=== PATIENT | female | born 1970 | race Caucasian/White ===

== ENCOUNTER 2018-12-10 16:10 | Emergency (ER) | payer MEDICAID ==
[~2018-12-10] VITALS: Ht 167.6 cm; Wt 53.0 kg
[2018-12-10 16:32] VITALS: Ht 167.6 cm; Wt 53.0 kg
[2018-12-10] MEDS ORDERED: SOD CHLORIDE 0.9% 1,000 ML IV STA (19:54)
[2018-12-10] MEDS ORDERED: KETOROLAC 15 MG INJ IV STA (19:54)
--- NOTE | 2018-12-10 20:22 | ERD ---
ER Documentation Chief Complaint Chief Complaint Complains of urine problems x 2 days HPI 48-year-old female with history of HIV presents with 2-day complaint of fever, stomach pain, dysuria. Denies hematuria. Not taking treatments. Denies nausea, vomiting, diarrhea. She is unsure what medication she is taking for HIV but states that they just changed her medication. States her CD4 is 700. Denies any HIV related illnesses. She has all her vaccines. ROS All systems reviewed and are negative except as per history of present illness. Medications Home Meds Active Scripts Acetaminophen* (Tylophen*) 500 Mg Capsule, 1-2 CAP PO Q8 PRN for PAIN AND OR ELEVATED TEMP, #20 CAP Prov:SANDRA GOMEZ 12/10/18 Ciprofloxacin Hcl* (Ciprofloxacin Hcl*) 500 Mg Tablet, 500 MG PO BID for pyelonephritis for 7 Days, TAB Prov:TAYO GOMEZEL 12/10/18 Allergies Allergies: Coded Allergies: No Known Allergy (Unverified , 12/10/18) PMhx/Soc Medical and Surgical Hx: pt denies Medical Hx, pt denies Surgical Hx History of Surgery: No Anesthesia Reaction: No Hx Neurological Disorder: No Hx Respiratory Disorders: No Hx Cardiac Disorders: No Hx Psychiatric Problems: No Hx Miscellaneous Medical Probl: No Hx Alcohol Use: No Hx Substance Use: No Hx Tobacco Use: No Smoking Status: Never smoker FmHx Family History: No diabetes, No coronary disease, No other Physical Exam Vitals Vital Signs Date Temp Pulse Resp B/P (MAP) Pulse Ox O2 O2 Flow FiO2 Time Delivery Rate 12/10/18 98.3 84 16 116/67 99 Room Air 23:03 (83) 12/10/18 99.5 84 20 147/85 100 16:32 (105) Physical Exam Const: No acute distress Head: Atraumatic Eyes: Normal Conjunctiva ENT: Normal External Ears, Nose and Mouth. Neck: Full range of motion. No meningismus. Resp: Clear to auscultation bilaterally Cardio: Regular rate and rhythm, no murmurs Abd: Negative McBurney's. Positive Stevenson sign. Skin: No petechiae or rashes Back: No midline or flank tenderness Ext: No cyanosis, or edema Neur: Awake and alert Psych: Normal Mood and Affect Result Diagram: 12/10/18203912/10/182039 Results 24 hrs Laboratory Tests Test 12/10/18 20:20 12/10/18 20:21 12/10/18 20:29 12/10/18 20:40 Urine Color YELLOW Urine Clarity CLOUDY Urine pH 5.0 Urine Specific 1.011 Curran Urine Ketones TRACE mg/dL Urine Nitrite NEGATIVE mg/dL Urine Bilirubin NEGATIVE mg/dL Urine Urobilinogen NEGATIVE mg/dL Urine Leukocyte 3+ Mirza/ul Esterase Urine Microscopic 12 /HPF RBC Urine Microscopic > 182 /HPF WBC Urine Squamous MANY /HPF Epithelial Cells Urine Bacteria FEW /HPF Urine Hemoglobin 1+ mg/dL Urine Glucose NEGATIVE mg/dL Urine Total Protein NEGATIVE mg/dl POC Beta HCG, NEGATIVE NEGATIVE Qualitative White Blood Count 11.5 10^3/ul Red Blood Count 4.54 10^6/ul Hemoglobin 14.3 g/dl Hematocrit 42.9 % Mean Corpuscular 94.5 fl Volume Mean Corpuscular 31.5 pg Hemoglobin Mean Corpuscular 33.3 g/dl Hemoglobin Concent Red Cell 12.2 % Distribution Width Platelet Count 216 10^3/UL Mean Platelet 11.2 fl Volume Immature 0.500 % Granulocytes % Neutrophils % 73.8 % Lymphocytes % 17.4 % Monocytes % 7.8 % Eosinophils % 0.1 % Basophils % 0.4 % Nucleated Red Blood 0.0 /100WBC Cells % Immature 0.060 10^3/ul Granulocytes # Neutrophils # 8.5 10^3/ul Lymphocytes # 2.0 10^3/ul Monocytes # 0.9 10^3/ul Eosinophils # 0.0 10^3/ul Basophils # 0.1 10^3/ul Nucleated Red Blood 0.0 10^3/ul Cells # Sodium Level 140 mmol/L Potassium Level 3.3 mmol/L Chloride Level 105 mmol/L Carbon Dioxide 19 mmol/L Level Anion Gap 16 Blood Urea Nitrogen 9 mg/dl Creatinine 1.02 mg/dl Est Glomerular 58 mL/min Filtrat Rate mL/min Glucose Level 109 mg/dl Calcium Level 10.2 mg/dl Total Bilirubin 0.7 mg/dl Direct Bilirubin 0.00 mg/dl Indirect Bilirubin 0.7 mg/dl Aspartate Amino 68 IU/L Transf (AST/SGOT) Alanine 54 IU/L Aminotransferase (A LT/SGPT) Alkaline 186 IU/L Phosphatase Total Protein 8.6 g/dl Albumin 4.4 g/dl Globulin 4.20 g/dl Albumin/Globulin 1.04 Ratio Lipase 40 U/L Current Medications Medications Dose Sig/Dodie Start Time Status Last (Trade) Ordered Route PRN Stop Time Admin Dose Reason Admin Sodium 1,000 ml @ Q1H STAT 12/10/18 DC 12/10/18 Chloride 1,000 mls/hr IV 19:54 12/10/18 20:41 20:53 Ketorolac 15 mg ONCE STAT 12/10/18 DC 12/10/18 Tromethamine IV 19:54 12/10/18 20:41 (Toradol) 20:05 Ceftriaxone 1 gm ONCE ONCE 12/10/18 Cancel Sodium IVPB 22:00 12/10/18 (Rocephin) 22:01 Ceftriaxone 50 ml @ ONCE ONCE 12/10/18 DC 12/10/18 Sodium 100 mls/hr IVPB 22:30 12/10/18 22:13 22:59 Procedures/MDM DIAGNOSTIC IMAGING REPORT Patient: ELSA MASTERSON : 1970 Age: 48 Sex: F MR #: [id number] DOS: 12/10/181953 Ordering MD: SANDRA GOMEZ Location: [facility] Room/Bed: PROCEDURE: US Abdomen Limited, Right Upper Quadrant CLINICAL INDICATION: Abdominal pain, right upper quadrant. TECHNIQUE: Real-time ultrasound of the right upper quadrant with image documentation. COMPARISON: None FINDINGS: LIVER: Unremarkable. No mass. No intrahepatic bile duct dilation. GALLBLADDER: Unremarkable. No gallstones. COMMON BILE DUCT: No biliary dilatation. The common duct measures 2.4 mm in diameter. No stones. PANCREAS: The pancreas is obscured by overlying intestinal gas. RIGHT KIDNEY: Right kidney measures 9.6 cm in length. No stones. No hydronephrosis. IMPRESSION: Unremarkable right upper quadrant ultrasound examination. RPTAT: [facility] Delano Baez Physician Employment Officer Date Time Electronically viewed and signed by Delano Baez Physician Employment Officer on 12/10/2018 21:18 RmC/ CC: SANDRA GOMEZ [phone] DIAGNOSTIC IMAGING REPORT Patient: ELSA MASTERSON : 1970 Age: 48 Sex: F MR #: [id number] DOS: 12/10/181953 Ordering MD: SANDRA GOMEZ Location: [facility] Room/Bed: PROCEDURE: US Pelvis Complete, Transabdominal CLINICAL INDICATION: Pain. TECHNIQUE: Real-time transabdominal pelvic ultrasound (complete) with image document ation. COMPARISON: None FINDINGS: UTERUS/CERVIX: Uterus measures 7.6 cm longitudinal by 3.9 cm AP by 5.1 cm transversely. No myometrial masses are demonstrated. The endometrium measures approximately 5 mm in AP thickness. RIGHT OVARY: Right ovary measures 4.4 x 3.4 x 4.0 cm. There is a 2.6 cm simple right ovarian cyst demonstrated. Blood flow is documented by Doppler. LEFT OVARY: Left ovary measures 2.8 x 1.8 x 1.9 cm. The ovary is unremarkable in appearance. Follicular type cysts are demonstrated. Blood flow is documented by Doppler. FREE FLUID: No free fluid. IMPRESSION: 1. 2.6 cm simple right ovarian cyst, likely physiologic. 2. Otherwise unremarkable pelvic ultrasound examination. RPTAT: [facility] Delano Baez Physician Employment Officer Date Time Electronically viewed and signed by Delano Baez Physician Employment Officer on 12/10/2018 21:20 C/ CC: SANDRA GOMEZ [phone] 48-year-old female with history of HIV presents with 2-day complaint of fever, stomach pain, dysuria. Denies hematuria. Not taking treatments. Denies nausea, vomiting, diarrhea. She is unsure what medication she is taking for HIV but states that they just changed her medication. States her CD4 is 700. Denies any HIV related illnesses. She has all her vaccines. Given patient's complaint of upper right quadrant rule out a cholecystitis. Abdominal pain and status of being HIV positive, ultrasound was performed to rule out cholecystitis. Results were within normal limits. In addition pelvic ultrasound showed only a cyst but no sign of torsion. UA was positive for UTI. This combined with patient's complaint of CVA tenderness and fevers, decision was made to treat for pyelonephritis with ciprofloxacin as well as 1 g of ceftriaxone. I have low suspicion for appendicitis due to patient history and exam, including normal ab dominal exam, lack of McBurney's point tenderness and ability of patient to jump up and down on exam] I have low suspicion for volvulus or obstruction due patient history and exam, including lack of history of biliary emesis and normal physical exam. I have low suspicion of DKA based on patient history and exam, including normal glucose, urinalysis, and lack of signs of dehydration. I have low suspicion for adrenal crisis, AAA, mesenteric ischemia, pyelonephritis, cholecystitis, aortic dissection, ectopic, CT, pneumonia, acute pancreatitis, PID, or other emergent causes based on patient history and exam. Most likely diagnosis is pyelonephritis. I discussed the case with Dr Hensley and he did not feel that additional labs or imaging were necessary. Patient was discharged with strict ER precautions. Patient was recommended to follow-up with PMD. All questions answered at discharge. Departure Diagnosis: Primary Impression: Pyelonephritis Condition: Stable TAYO GOMEZEL Dec 10, 2018 20:22
[2018-12-10] MEDS ORDERED: CIPR500T4 PO (21:56)
[2018-12-10] MEDS ORDERED: ACET500C5 PO (21:57)
[2018-12-10] MEDS ORDERED: CEFTRIAXONE 1 GM INJ IVPB ONE (22:00)
[2018-12-10] MEDS ORDERED: CEFTRIAXONE 1 GM/NS 50 ML IVPB ONE (22:30)
[2018-12-10 23:03] VITALS: BP 116/67; PULSE 84; RESP 16
== END 2018-12-10 23:05 | disposition home or self-care (01) ==
LOC: FTE 16:10
DX: N12 Tubulo-interstitial nephritis, not specified as acute or chronic (principal); R10.2 Pelvic and perineal pain; Z21 Asymptomatic human immunodeficiency virus [HIV] infection status
CPT/HCPCS: 36415; 76705; 76856; 80053; 81001; 81025; 83690; 85025; 87400; 96361; 96365; 96375; J0696; J1885; J7030; Z7502